=== PATIENT | male | born 1965 | race Caucasian/White ===

== ENCOUNTER → 2021-01-11 17:07 | Outpatient (CLI) | payer OTHER, SELFPAY ==
[2021-01-11 17:47] LABS: Bacteria 0 SEEN /hpf (None Seen); Mucous, Urine 0 SEEN /hpf (<or=2+); Red Blood Cells-Urine 0 SEEN /hpf (0-5); White Blood Cells 0 SEEN /hpf (0-5)
[2021-01-11 18:39] LABS: Color, Urine Yellow (Yellow); Glucose, Dipstick Normal (Normal); Ketone-Dipstick Negative (Negative); Leukocyte Esterase-Dipstick Negative /ul (Negative); Nitrite-Dipstick Negative (Negative); Occult Blood-Urine 25 /ul (Negative); Protein-Dipstick Negative (Negative); Specific Gravity, Urine 1.015 (1.002-1.030); Urine Bilirubin Dipstick Negative (Negative); Urine Clarity Clear (Clear); Urine Urobilinogen Normal (Normal)
[2021-01-11 19:16] LABS: Squamous Epithelial Cells - UA 0-5 SEEN /hpf (0-5)
== END ==
PROVIDERS: PCP Family Medicine; Referring Provider Nurse Practitioner Adult Health; Visit Provider Nurse Practitioner Adult Health
DX: R31.29 Other microscopic hematuria (principal)
CPT/HCPCS: 81001

== ENCOUNTER 2024-09-30 16:01 | Inpatient (IN) | payer OTHER, SELFPAY ==
[2024-09-30] VITALS (24 sets, daily range): BP systolic 122–178; BP diastolic 71–154; PULSE 70–182; RESP 12–23; TEMP 36.6–36.7; O2SAT 91–96; BMI 35.6; BMI 38.7
--- NOTE | 2024-09-30 16:10 | EKG12_ITS ---
Test Reason : Blood Pressure : */* mmHG Vent. Rate : 174 BPM Atrial Rate : * BPM P-R Int : * ms QRS Dur : 90 ms QT Int : 278 ms P-R-T Axes : * 36 -75 degrees QTcB Int : 473 ms Critical Test Result: High HR Atrial fibrillation with rapid ventricular response Marked ST abnormality, possible lateral subendocardial injury Abnormal ECG Confirmed by ARCHIE MARR, MATTHIAS ([id number]), map editor KAREEM MATHUR ([id number]) on 10/01/2024 8:08:47 AM Referred By: Confirmed By: MATTHIAS ALMANZA MD
[2024-09-30] MEDS: dilTIAZem 25 MG/5 ML Vial 20 MG IV BOLUS (16:11)
--- NOTE | 2024-09-30 16:11 | EX.ED.DYSGE1 ---
HPI <RUSS Lopez Last Filed: 09/30/24 17:53> History of Present Illness Chief Complaint: Palpitations Narrative Narrative: 59-year-old male with PMH of HTN, DVT/PE on Coumadin presents with palpitations that started at 9 AM had have occurred all day long. It started when he was walking uphill. He states he has had intermittent palpitations for the last 10 years but it normally only last a few minutes and goes away so he was never been evaluated. He states he is had an EKG at his primary care and cardiology office but at that time did not have symptoms and it looked fine. Here his heart rates in the 180s. He denies history of A-fib or known arrhythmia. 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 He is compliant and his INR was 3.0 last week. He denies chest pain or shortness of breath. He states he has mild ankle swelling in the mornings which goes down and has had no increased edema. PFSH <RUSS Lopez Last Filed: 09/30/24 17:53> [facility] Home Medications ?Medication ?Instructions ?Recorded ?Last Taken ?Type amlodipine 5 mg tablet 5 mg PO DAILY 09/30/24 09/30/24 History metoprolol tartrate 25 mg tablet 25 mg PO BID 09/30/24 Unknown History tamsulosin 0.4 mg capsule 0.8 mg PO QHS 09/30/24 09/29/24 History warfarin 1 mg tablet 1 mg PO DAILY 09/30/24 09/30/24 History warfarin 2 mg tablet 2 mg PO SUTUWETHSA 09/30/24 09/30/24 History warfarin 2.5 mg tablet 2.5 mg PO MOFR 09/30/24 09/30/24 History Allergy/AdvReac Type Severity Reaction Status Date / Time No Known Allergies Allergy Verified 09/30/24 16:04 Social History Smoking Status: Never smoker ROS <RUSS Lopez Last Filed: 09/30/24 17:53> ROS ED ROS Narrative Constitutional: Negative for fever, chills, malaise. CVS: Positive for palpitations. Negative for chest pain, syncope. Respiratory: Negative for shortness of breath, cough, orthopnea. GI: Negative for abdominal pain, nausea, vomiting. EXAM <RUSS Lopez Filed: 09/30/24 17:53> Physical Exam Narrative Exam Narrative: CONST: Patient sitting in no acute distress. EYES: Normal inspection. NECK: Normal inspection. RESP: No respiratory distress, CTAB. CVS: Tachycardic irregularly irregular rhythm, no murmur, no gallop. ABD: Soft and nontender, no guarding or rebound, nondistended. SKIN: Color normal, no rash, warm, dry, intact. EXTREMITIES: Normal appearance, trace bilateral ankle edema. NEURO: Alert and answering questions appropriately. PSYCH: Normal affect. Const Vital Signs: 09/30/24 16:01 09/30/24 16:02 09/30/24 16:10 Temperature 98 F Temperature Source Oral Pulse Rate 179 H 182 H Respiratory Rate 21 H 12 Respiratory Effort Normal Non-Labored Respiratory Pattern Blood Pressure 169/126 H 169/126 H Blood Pressure Mean 140 140 Blood Pressure Source Blood Pressure Position Blood Pressure Location Pulse Ox 95 93 Oxygen Delivery Method Room Air Room Air 09/30/24 16:13 09/30/24 16:17 09/30/24 16:18 Temperature Temperature Source Pulse Rate 129 H 118 H Respiratory Rate 21 H 12 Respiratory Effort Normal Non-Labored Respiratory Pattern Tachypnea Blood Pressure 138/104 H Blood Pressure Mean 115 Blood Pressure Source Blood Pressure Position Blood Pressure Location Pulse Ox 93 95 Oxygen Delivery Method Room Air Room Air 09/30/24 16:21 09/30/24 16:30 09/30/24 16:45 Temperature Temperature Source Pulse Rate 116 H 109 H 113 H Respiratory Rate 17 14 16 Respiratory Effort Respiratory Pattern Blood Pressure 156/101 H 152/71 H Blood Pressure Mean 116 90 Blood Pressure Source Blood Pressure Position Blood Pressure Location Pulse Ox 95 95 91 Oxygen Delivery Method Room Air Room Air 09/30/24 17:00 09/30/24 17:15 09/30/24 17:22 Temperature Temperature Source Pulse Rate 114 H 114 H Respiratory Rate 14 14 Respiratory Effort Respiratory Pattern Blood Pressure 156/96 H 159/104 H 159/104 H Blood Pressure Mean 112 116 122 Blood Pressure Source Monitor Blood Pressure Position Semi-Fowlers Blood Pressure Location Right Arm Pulse Ox 94 93 Oxygen Delivery Method Room Air Room Air 09/30/24 17:30 Temperature Temperature Source Pulse Rate 104 H Respiratory Rate 17 Respiratory Effort Respiratory Pattern Blood Pressure 170/101 H Blood Pressure Mean 120 Blood Pressure Source Blood Pressure Position Blood Pressure Location Pulse Ox 96 Oxygen Delivery Method <Dr. Rome Howe DO - Last Filed: 09/30/24 17:59> Physical Exam Const Vital Signs: 09/30/24 16:01 09/30/24 16:02 09/30/24 16:10 Temperature 98 F Temperature Source Oral Pulse Rate 179 H 182 H Respiratory Rate 21 H 12 Respiratory Effort Normal Non-Labored Respiratory Pattern Blood Pressure 169/126 H 169/126 H Blood Pressure Mean 140 140 Blood Pressure Source Blood Pressure Position Blood Pressure Location Pulse Ox 95 93 Oxygen Delivery Method Room Air Room Air 09/30/24 16:13 09/30/24 16:17 09/30/24 16:18 Temperature Temperature Source Pulse Rate 129 H 118 H Respiratory Rate 21 H 12 Respiratory Effort Normal Non-Labored Respiratory Pattern Tachypnea Blood Pressure 138/104 H Blood Pressure Mean 115 Blood Pressure Source Blood Pressure Position Blood Pressure Location Pulse Ox 93 95 Oxygen Delivery Method Room Air Room Air 09/30/24 16:21 09/30/24 16:30 09/30/24 16:45 Temperature Temperature Source Pulse Rate 116 H 109 H 113 H Respiratory Rate 17 14 16 Respiratory Effort Respiratory Pattern Blood Pressure 156/101 H 152/71 H Blood Pressure Mean 116 90 Blood Pressure Source Blood Pressure Position Blood Pressure Location Pulse Ox 95 95 91 Oxygen Delivery Method Room Air Room Air 09/30/24 17:00 09/30/24 17:15 09/30/24 17:22 Temperature Temperature Source Pulse Rate 114 H 114 H Respiratory Rate 14 14 Respiratory Effort Respiratory Pattern Blood Pressure 156/96 H 159/104 H 159/104 H Blood Pressure Mean 112 116 122 Blood Pressure Source Monitor Blood Pressure Position Semi-Fowlers Blood Pressure Location Right Arm Pulse Ox 94 93 Oxygen Delivery Method Room Air Room Air 09/30/24 17:30 Temperature Temperature Source Pulse Rate 104 H Respiratory Rate 17 Respiratory Effort Respiratory Pattern Blood Pressure 170/101 H Blood Pressure Mean 120 Blood Pressure Source Blood Pressure Position Blood Pressure Location Pulse Ox 96 Oxygen Delivery Method MDM <RUSS Lopez - Last Filed: 09/30/24 17:53> MDM MDM Narrative Medical decision making narrative: History gathered from: Patient and spouse Differential includes A-fib, ACS 59-year-old male has had palpitations since 9 AM and presents in A-fib RVR in the 170s. BP is 169/126, 95% on room air. He is in no distress and has no chest pain or shortness of breath. EKG shows A-fib RVR and ST depressions in the lateral chest leads with no prior for comparison. Labs show WBC of 8.2, hemoglobin 18.5. Chemistry is unremarkable. After IV Cardizem bolus of 20 mg he is in A-fib RVR around 115 bpm. He was ordered a second bolus of Cardizem 10 mg and a drip. CBC shows hemoglobin of 18.5, otherwise unremarkable. BMP negative. TSH within normal limits at 1.64. Troponin is 14 with delta pending. INR is therapeutic at 2.5. CXR shows cardiomegaly without other acute findings. It notes a tortuous aorta but patient has no chest pain and I am not concerned for an acute dissection and think this could be followed up outpatient. I discussed the case with the hospitalist for admission for A-fib RVR. Lab Data Attestation: I reviewed the patient's lab results. Labs: Laboratory Results - last 24 hr 09/30/24 16:09 WBC 8.2 RBC 5.89 Hgb 18.5 H* Hct 52.0 MCV 88.3 MCH 31.4 MCHC 35.6 RDW Std Deviation 43.4 RDW Coeff of Cait 13.4 Plt Count 228 MPV 8.2 Immature Gran % (Auto) 0.500 Neut % (Auto) 58.9 Lymph % (Auto) 28.3 [place] % (Auto) 10.2 H Eos % (Auto) 1.6 Baso % (Auto) 0.5 Absolute Neuts (auto) 4.9 Absolute Lymphs (auto) 2.33 Nucleated RBC % 0 PT 27.8 H INR 2.5 Sodium 139 Potassium 3.3 Chloride 101 Carbon Dioxide 23.1 Anion Gap 15 BUN 16 Creatinine 1.02 Estim Creat Clear Calc 103.37 Est GFR (MDRD) Non-Af 86 BUN/Creatinine Ratio 15.8 Glucose 138 H Calcium 9.2 Magnesium 1.9 Troponin T High Sens 14 NT pro BNP II 104 TSH 1.640 Radiography Diagnostic Testing: Clinical Impression(s) from Imaging Studies Chest X-Ray 09/30/24 16:22 IMPRESSION: 1. Borderline cardiomegaly without visible acute cardiopulmonary findings 2. Recommend outpatient CT chest, ideally with IV contrast, for further evaluation of questionable above mediastinal findings. Comparison with any available outside imaging may also be helpful. 3. Additional description as above. Reading Location: [facility] ED attending interpretation 1 view chest x-ray shows cardiomegaly, no acute infiltrate, edema, or effusion. EKG Initial EKG: Attestation: I personally reviewed and interpreted this EKG as follows: Interpretation: Atrial Fibrillation Comments: A-fib RVR at [address] depressions in the V3 through V6 No prior for comparison <Dr. Rome Howe, - Last Filed: 09/30/24 17:59> MDM History & Record Review Discussion w/independent historian: Patient and Family Lab Data Labs: Laboratory Results - last 24 hr 09/30/24 16:09 WBC 8.2 RBC 5.89 Hgb 18.5 H* Hct 52.0 MCV 88.3 MCH 31.4 MCHC 35.6 RDW Std Deviation 43.4 RDW Coeff of Cait 13.4 Plt Count 228 MPV 8.2 Immature Gran % (Auto) 0.500 Neut % (Auto) 58.9 Lymph % (Auto) 28.3 [place] % (Auto) 10.2 H Eos % (Auto) 1.6 Baso % (Auto) 0.5 Absolute Neuts (auto) 4.9 Absolute Lymphs (auto) 2.33 Nucleated RBC % 0 PT 27.8 H INR 2.5 Sodium 139 Potassium 3.3 Chloride 101 Carbon Dioxide 23.1 Anion Gap 15 BUN 16 Creatinine 1.02 Estim Creat Clear Calc 103.37 Est GFR (MDRD) Non-Af 86 BUN/Creatinine Ratio 15.8 Glucose 138 H Calcium 9.2 Magnesium 1.9 Troponin T High Sens 14 NT pro BNP II 104 TSH 1.640 Radiography Diagnostic Testing: Clinical Impression(s) from Imaging Studies Chest X-Ray 09/30/24 16:22 IMPRESSION: 1. Borderline cardiomegaly without visible acute cardiopulmonary findings 2. Recommend outpatient CT chest, ideally with IV contrast, for further evaluation of questionable above mediastinal findings. Comparison with any available outside imaging may also be helpful. 3. Additional description as above. Reading Location: [facility] Management Discussion w/another healthcare provider: Hospitalist Treatment and Re-Evaluation :: I have personally performed a face to face assessment of the patient and have reviewed the SETH Note. I performed a substantive portion of the visit including all aspects of the following. My jeffrey findings include: History is 59-year-old [employer] male presenting to the emergency room with heart palpitations and fatigue. Patient states that for the years he has had intermittent episodes of heart palpitations which would resolve on its own in a couple hours or less. However today he was walking home and spent the last couple 100 yards going up the hill and he felt his heart racing. He states his brain feels foggy and generally rundown. He states that sensation has not resolved. He is chronically on warfarin due to 2 prior pulmonary embolisms with a strong family history. He has never been diagnosed with a cardiac dysrhythmia. He denies chest pain. Exam is heart is irregularly irregular and tachycardic. Lung sounds are clear and equal. Mild edema of the lower extremities but the patient states his legs are not any different than normal. ANO x 3 Medical Decison Making EKG confirms atrial fibrillation with RVR. My independent interpretation of the chest x-ray is no acute process. INR is therapeutic at 2.5. Plan is admission to the hospital. He is received Cardizem and was placed on a drip. Discharge Plan Triage Chief Complaint: Palpitations ED Midlevel Provider: Rakel Reese ED Provider: Rome Howe Dx/Rx/DC Orders Clinical Impression: Atrial fibrillation with RVR, Anticoagulant long-term use Primary Care Provider: Brennon Sifuentes
[2024-09-30 16:16] LABS: Absolute Lymphocyte Count 2.33 X10^3/uL (0.83-4.51); Absolute Neutrophil Count 4.9 X10^3/uL (2.0-7.7); Basophil# 0.04 X10^3/uL; Basophil% 0.5 % (0-1); Eosinophil# 0.13 X10^3/uL; Eosinophils% 1.6 % (0-5); Lymphocyte # 2.33 X10^3/ul (0.83-4.51); Lymphocyte % 28.3 % (19-41); Mean Corp Hgb Conc 35.6 g/dL (32-36); Mean Corpuscular Hgb 31.4 pg (27.0-32.0); Mean Corpuscular Volume 88.3 fL (80-94); Mean Platelet Vol. 8.2 fl (6.2-12.0); Monocyte# 0.84 X10^3/uL; Monocyte% 10.2 % (0-10); NRBC Flagged by Analyzer 0 % (0-5); Neutrophil # 4.86 X10^3/uL (2.7-7.7); Neutrophil % 58.9 % (47-70); Platelet Count 228 K/mm3 (150-450); RBC Distribution Width CV 13.4 % (11.6-14.6); RBC Distribution Width SD 43.4 fl (35.1-43.9); Red Blood Count 5.89 M/mm3 (4.6-6.2); White Blood Count 8.2 K/mm3 (4.4-11.0)
[2024-09-30 16:20] LABS: Hemoglobin 18.5 g/dL (13.0-16.5)
--- NOTE | 2024-09-30 16:22 | RAD_ITS ---
PROCEDURE: CHEST 1 VIEW (RADCXPA), 09/30/2024 REASON FOR EXAM: DYSPNEA TECHNIQUE: A single portable AP view of the chest was obtained. COMPARISON: None FINDINGS: Heart: Borderline cardiomegaly for technique. Mediastinum: Tortuous aorta, unable to exclude ectasia/aneurysm. Widening of the RIGHT paratracheal stripe which could be projectional, related to mediastinal lipomatosis, prominent vasculature, mediastinal lymphadenopathy, or other mediastinal process. Lungs/pleura: No focal consolidation. No sizeable pleural effusion or visible pneumothorax. Bones: Likely demineralization. Degenerative changes of the RIGHT shoulder including evidence of rotator cuff pathology. Lines and support devices: None. RAD/Chest 1 View IMPRESSION: 1. Borderline cardiomegaly without visible acute cardiopulmonary findings 2. Recommend outpatient CT chest, ideally with IV contrast, for further evaluat ion of questionable above mediastinal findings. Comparison with any available outside imaging may also be helpful. 3. Additional description as above. Reading Location: [id number]
[2024-09-30] MEDS: dilTIAZem 25 MG/5 ML Vial 10 MG IV BOLUS (16:37)
[2024-09-30 16:42] LABS: Anion Gap 15 (5-15); BUN 16 mg/dL (4-19); BUN/Creat Ratio 15.8 RATIO (10-20); Calcium,Total 9.2 mg/dL (7.6-11.0); Carbon Dioxide 23.1 mmol/L (21.0-32.0); Chloride 101 mmol/L (98-108); Creatinine, Serum 1.02 mg/dL (0.70-1.20); EST Glomerular Filtration Rate 86 (>60); Estimated Creatinine Clearance 103.37 ml/min (50-250); Glucose 138 mg/dL (70-99); Potassium 3.3 mmol/L (3.3-5.1); Sodium Level 139 mmol/L (133-145); Troponin T High Sensitivity 14 ng/L (<=22)
[2024-09-30] MEDS: Diltiazem 125 MG in Dextrose 5%-Water (100mL Bag) 100 ML IV (16:43)
[2024-09-30 17:08] LABS: Magnesium 1.9 mg/dL (1.5-2.2)
[2024-09-30 17:31] LABS: Pro- Brain NATRIURETIC PEPTIDE 104 pg/mL (<=900)
[2024-09-30 17:47] LABS: International Normalized Ratio 2.5; Prothrombin Time (Protime)PT. 27.8 SECONDS (11.7-14.9)
[2024-09-30] MEDS: 0.9% Normal Saline (1000mL) 1,000 ML 999 ML IV (17:54)
--- NOTE | 2024-09-30 18:00 | HP.PCM.HOS_ITS ---
[facility] - General General Date of Admission: 09/30/24 HPI Narrative LÁZARO MONTENEGRO, is a 59 M who presents to the hospital with palpitations. Initially his heart rate peaked at 182 and at that time he felt a little bit tired and fatigued. He has had intermittent episodes of palpitations that always resolved on his own and does not carry a diagnosis of A-fib prior to today. He denies ever having had an echo in the past, he is currently on Coumadin for history of DVTs and PEs, there is a family history of blood clots as well. In the ER he was found to be in A-fib, initial troponin was normal at 14 with a proBNP of 104 and a TSH of 1.64. He is on metoprolol 25 mg p.o. twice daily and was started on a Cardizem drip his heart rate did come down to 110 during my evaluation but he remains in A-fib. [facility] Home Medications ?Medication ?Instructions ?Recorded ?Last Taken ?Type amlodipine 5 mg tablet 5 mg PO BID blood pressure 0 09/30/24 09/30/24 History metoprolol tartrate 25 mg tablet 25 mg PO BID 09/30/24 Unknown History tamsulosin 0.4 mg capsule 0.8 mg PO QHS 09/30/2409/29 History warfarin 1 mg tablet 1 mg PO DAILY 09/30/2409/30 History warfarin 2 mg tablet 2 mg PO SUTUWETHSA 09/30/24 09/30/24 History warfarin 2.5 mg tablet 2.5 mg PO MOFR 09/30/2401/17 History Allergy/AdvReac Type Severity Reaction Status Date / Time No Known Allergies Allergy Verified 09/30/24 16:04 Family History (Updated 09/30/24 @ 18:[address] Geovanny Martinez MD) Other Diabetes Heart disease Surgical History (Updated 09/30/24 @ 18:[address] Geovanny Martinez MD) History of surgery on left wrist History of elbow surgery Social History Smoking Status: Never smoker ROS Constitutional Constitutional: Reports fatigue; Denies chills, fever(s) or malaise Eyes Eyes: Denies blurry vision ENT HEENT: Denies headache(s) or nasal discharge Cardiovascular Cardiovascular: Reports palpitations; Denies chest pain, dyspnea on exertion or syncope Respiratory/Chest Respiratory/Chest: Denies cough, shortness of breath at rest or shortness of breath with exertion Gastrointestinal Gastrointestinal: Denies constipation, diarrhea, nausea or vomiting Genitourinary Genitourinary: Denies dysuria Neurologic Neurologic: Denies focal weakness, numbness or tremor(s) Psychiatric Psychiatric: Denies anxiety or depression Vital Signs Vital Signs Vital Signs: 09/30/24 16:01 09/30/24 16:02 09/30/24 16:10 Temperature 98 F Temperature Source Oral Pulse Rate 179 H 182 H Respiratory Rate 21 H 12 Respiratory Effort Normal Non-Labored Respiratory Pattern Blood Pressure 169/126 H 169/126 H Blood Pressure Mean 140 140 Blood Pressure Source Blood Pressure Position Blood Pressure Location Pulse Ox 95 93 Oxygen Delivery Method Room Air Room Air 09/30/24 16:13 09/30/24 16:17 09/30/24 16:18 Temperature Temperature Source Pulse Rate 129 H 118 H Respiratory Rate 21 H 12 Respiratory Effort Normal Non-Labored Respiratory Pattern Tachypnea Blood Pressure 138/104 H Blood Pressure Mean 115 Blood Pressure Source Blood Pressure Position Blood Pressure Location Pulse Ox 93 95 Oxygen Delivery Method Room Air Room Air 09/30/24 16:21 09/30/24 16:30 09/30/24 16:45 Temperature Temperature Source Pulse Rate 116 H 109 H 113 H Respiratory Rate 17 14 16 Respiratory Effort Respiratory Pattern Blood Pressure 156/101 H 152/71 H Blood Pressure Mean 116 90 Blood Pressure Source Blood Pressure Position Blood Pressure Location Pulse Ox 95 95 91 Oxygen Delivery Method Room Air Room Air 09/30/24 17:00 09/30/24 17:15 09/30/24 17:22 Temperature Temperature Source Pulse Rate 114 H 114 H Respiratory Rate 14 14 Respiratory Effort Respiratory Pattern Blood Pressure 156/96 H 159/104 H 159/104 H Blood Pressure Mean 112 116 122 Blood Pressure Source Monitor Blood Pressure Position Semi-Fowlers Blood Pressure Location Right Arm Pulse Ox 94 93 Oxygen Delivery Method Room Air Room Air 09/30/24 17:30 09/30/24 17:45 09/30/24 17:54 Temperature Temperature Source Pulse Rate 104 H 108 H 109 H Respiratory Rate 17 15 23 H Respiratory Effort Respiratory Pattern Blood Pressure 170/101 H 175/154 H 170/101 H Blood Pressure Mean 120 161 124 Blood Pressure Source Blood Pressure Position Blood Pressure Location Pulse Ox 96 94 95 Oxygen Delivery Method Room Air 09/30/24 17:55 Temperature 98 F Temperature Source Pulse Rate 107 H Respiratory Rate 19 H Respiratory Effort Respiratory Pattern Blood Pressure 162/119 H Blood Pressure Mean 133 Blood Pressure Source Blood Pressure Position Blood Pressure Location Pulse Ox 95 Oxygen Delivery Method Weight Weight: 255 lb 1.197 oz Body Mass Index (BMI) 35.6 Physical Exam Narrative General: Alert, Oriented x3, Cooperative, No apparent distress HEENT: Atraumatic, PERRLA, EOMI, Normocephalic Oral: Moist Mucosa Neck: Supple, No JVD Lungs: Diminished, Normal air movement, No rhonchi, No wheeze, No rales Cardiovascular: Irregular rate and rhythm, Normal S1, Normal S2, No murmurs Abdomen: Soft, Non Tender, Non-Distended, No Hepato-splenomegaly Extremities: No edema, Capillary Refill Less than 3 Seconds Skin: No rashes, No breakdown Musculoskeletal: No Tenderness to Palpation of Joints or Extremities Neurological: No focal neurological deficits, Motor Exam 5/5 strength throughout, Sensory exam intact to light touch and pain Psych/Mental Status: Normal Affect, Appropriate Results Lab / Micro Data 09/30/24 16:09 09/30/24 16:09 Labs: Laboratory Results - last 24 hr 09/30/24 16:09: WBC 8.2, RBC 5.89, Hgb 18.5 H*, Hct 52.0, MCV 88.3, MCH 31.4, MCHC 35.6, RDW Std Deviation 43.4, RDW Coeff of Cait 13.4, Plt Count 228, MPV 8.2, Immature Gran % (Auto) 0.500, Neut % (Auto) 58.9, Lymph % (Auto) 28.3, [place] % (Auto) 10.2 H, Eos % (Auto) 1.6, Baso % (Auto) 0.5, Absolute Neuts (auto) 4.9, Absolute Lymphs (auto) 2.33, Nucleated RBC % 0, PT 27.8 H, INR 2.5, Sodium 139, Potassium 3.3, Chloride 101, Carbon Dioxide 23.1, Anion Gap 15, BUN 16, Creatinine 1.02, Estim Creat Clear Calc 103.37, Est GFR (MDRD) Non-Af 86, BUN/Creatinine Ratio 15.8, Glucose 138 H, Calcium 9.2, Magnesium 1.9, Troponin T High Sens 14, NT pro BNP II 104, TSH 1.640 Imaging Radiology Impression Chest X-Ray 09/30/24 16:22 IMPRESSION: 1. Borderline cardiomegaly without visible acute cardiopulmonary findings 2. Recommend outpatient CT chest, ideally with IV contrast, for further evaluation of questionable above mediastinal findings. Comparison with any available outside imaging may also be helpful. 3. Additional description as above. Reading Location: [id number] Assessment & Plan Assessment/Plan (1) Atrial fibrillation with RVR: PLAN: Plan 1. New onset A-fib with RVR/essential HTN ? Continue with an echo ? Will increase metoprolol to 50 mg p.o. twice daily ? Continue with Cardizem drip, can titrate off after his metoprolol is given tonight or when he goes into normal sinus rhythm ? Continue with his home Coumadin for his hypercoagulable state ? Will monitor his blood pressure and make adjustments as necessary, his Norvasc is at 5 mg daily ? INR today is 2.5 2. BPH ? Stable ? Continue with Flomax DVT: Coumadin Charges/Coding Visit Charges Inpatient E&M: 44950 Init Hosp L2
[2024-09-30 18:39] LABS: Troponin T High Sens 2 HR 16 ng/L (<=22)
--- NOTE | 2024-09-30 18:41 | ECHOD_ITS ---
Reason For Study Reason For Study: ATRIAL FIB/FLUTTER Procedure This was a 2D Doppler, Color Flow transthoracic echocardiogram. Exam performed portable in patient room. Left Ventricle Normal LV size. Left ventricular systolic function is normal. The left ventricular ejection fraction is 60 %. No regional wall motion abnormalities noted. Right Ventricle Normal RV size. Normal systolic function. Atria Normal left atrium. Normal right atrium. Mitral Valve Normal mitral valve. Tricuspid Valve Normal tricuspid valve. Aortic Valve Trisinus/trileaflet aortic valve. Pulmonic Valve Normal pulmonic valve. Great Vessels Normal aortic root. The pulmonary artery is normal size. Inferior vena cava collapse with respiration. Pericardium/Pleural No pericardial effusion. MMode/2D Measurements & Calculations LVIDd: 5.6 cm IVSd: 1.1 cm Ao root diam: 4.0 cm LVIDs: 3.3 cm LVPWd: 1.1 cm RVDd: 3.8 cm FS: 41.0 % LAV(MOD-bp): 83.8 ml LVAd ap4: 35.3 cm2 SV(MOD-sp4): 65.3 ml LAV(MOD-bp) Indexed: 35.8 ml/m2 LVLd ap4: 8.9 cm SI(MOD-sp4): 27.9 ml/m2 LAV(MOD-sp2): 87.9 ml EDV(MOD-sp4): 115.4 ml LAV(MOD-sp4): 78.9 ml EDV(sp4-el): 119.3 ml LVAs ap4: 20.6 cm2 LVLs ap4: 7.4 cm ESV(MOD-sp4): 50.1 ml ESV(sp4-el): 48.7 ml EF(MOD-sp4): 56.6 % EF(sp4-el): 59.2 % SV(sp4-el): 70.6 ml LA A4 area: 23.2 cm2 LA dimension(2D): 4.3 cm RA A4 area: 15.3 cm2 TAPSE: 2.8 cm Time Measurements MV dec time: 0.17 sec Doppler Measurements & Calculations MV E max silas: 77.8 cm/sec Lat Peak E' Silas: 7.9 cm/sec Med Peak E' Silas: 6.2 cm/sec MV A max silas: 90.6 cm/sec E/E' lat: 9.9 E/E' med: 12.5 MV E/A: 0.86 MV V2 max: 93.2 cm/sec MV P1/2t max silas: 91.2 cm/sec Ao V2 max: 131.0 cm/sec MV max P.5 mmHg MV P1/2t: 50.0 msec Ao max P.9 mmHg MV V2 mean: 47.5 cm/sec Ao V2 mean: 94.9 cm/sec MV mean P.2 mmHg MV dec slope: 535.0 cm/sec2 Ao mean P.9 mmHg MV V2 VTI: 26.7 cm MVA(P1/2t): 4.4 cm2 Ao V2 VTI: 27.9 cm AV (velocity ratio): 0.58 LV V1 max: 74.4 cm/sec PA V2 max: 113.6 cm/sec TR max silas: 240.7 cm/sec LV V1 max P.2 mmHg PA V2 mean: 75.9 cm/sec TR max P.2 mmHg LV V1 mean P.2 mmHg LV V1 mean: 51.1 cm/sec LV V1 VTI: 16.2 cm ECHO/Echo Complete Interpretation Summary Normal LV size. Left ventricular systolic function is normal. The left ventricular ejection fraction is 60 %. Structurally normal valves. Ordering Physician: Geovanny Martinez Referring Physician: Brennon Sifuentes Performed By: Jina Bonilla, RONITCS, RVT
[2024-09-30 20:19] LABS: Troponin T High Sens 4 HR 17 ng/L (<=22)
[2024-09-30] MEDS: Metoprolol Tartrate 50 MG Tablet PO (21:08)
[2024-09-30] MEDS: Tamsulosin HCl 0.4 MG Capsule 0.8 MG PO (21:09)
--- NOTE | 2024-09-30 21:30 | EKG12_ITS ---
Test Reason : NSR CONVERSION Blood Pressure : */* mmHG Vent. Rate : 71 BPM Atrial Rate : 71 BPM P-R Int : 212 ms QRS Dur : 100 ms QT Int : 388 ms P-R-T Axes : 28 21 14 degrees QTcB Int : 421 ms Sinus rhythm with 1st degree A-V block Otherwise normal ECG When compared with ECG of 30-Sep-2024 16:03, MANUAL COMPARISON REQUIRED DATA IS UNCONFIRMED Confirmed by ARCHIE MARR, MATTHIAS ([id number]), editorial manager KAREEM MATHUR ([id number]) on 10/01/2024 8:11:35 AM Referred By: Confirmed By: MATTHIAS ALMANZA MD
[2024-09-30] MEDS: dilTIAZem CD 240 MG Capsule PO (22:39)
[2024-10-01 03:00] VITALS: BP 143/94; PULSE 67; RESP 12; TEMP 36.6; O2SAT 93
[2024-10-01 06:42] LABS: Absolute Lymphocyte Count 1.52 X10^3/uL (0.83-4.51); Absolute Neutrophil Count 3.4 X10^3/uL (2.0-7.7); Basophil# 0.02 X10^3/uL; Basophil% 0.4 % (0-1); Eosinophil# 0.12 X10^3/uL; Eosinophils% 2.1 % (0-5); Hemoglobin 15.7 g/dL (13.0-16.5); Lymphocyte # 1.52 X10^3/ul (0.83-4.51); Lymphocyte % 26.8 % (19-41); Mean Corp Hgb Conc 34.9 g/dL (32-36); Mean Corpuscular Volume 88.8 fL (80-94); Mean Platelet Vol. 8.3 fl (6.2-12.0); Monocyte# 0.64 X10^3/uL; Monocyte% 11.3 % (0-10); NRBC Flagged by Analyzer 0 % (0-5); Neutrophil # 3.36 X10^3/uL (2.7-7.7); Platelet Count 218 K/mm3 (150-450); RBC Distribution Width CV 13.7 % (11.6-14.6); RBC Distribution Width SD 44.1 fl (35.1-43.9); Red Blood Count 5.07 M/mm3 (4.6-6.2); White Blood Count 5.7 K/mm3 (4.4-11.0)
[2024-10-01 06:57] LABS: International Normalized Ratio 2.6; Prothrombin Time (Protime)PT. 28.5 SECONDS (11.7-14.9)
[2024-10-01 07:04] LABS: Anion Gap 12 (5-15); BUN 13 mg/dL (4-19); BUN/Creat Ratio 12.7 RATIO (10-20); Calcium,Total 8.4 mg/dL (7.6-11.0); Carbon Dioxide 24.8 mmol/L (21.0-32.0); Chloride 103 mmol/L (98-108); Creatinine, Serum 0.99 mg/dL (0.70-1.20); EST Glomerular Filtration Rate 89 (>60); Estimated Creatinine Clearance 101.66 ml/min (50-250); Glucose 121 mg/dL (70-99); Potassium 3.4 mmol/L (3.3-5.1); Sodium Level 140 mmol/L (133-145)
[2024-10-01 09:00] VITALS: BP 152/99; PULSE 69; RESP 18; TEMP 36.6; O2SAT 97
[2024-10-01 09:15] VITALS: BP 152/99; PULSE 69
[2024-10-01] MEDS: amLODIPine 5 MG Tablet PO (09:15)
[2024-10-01] MEDS: Metoprolol Tartrate 50 MG Tablet PO (09:15)
--- NOTE | 2024-10-01 09:24 | PCM.DC.SUM ---
Providers Date of Admission: 09/30/24 Date of Discharge: 10/01/24 Primary Care Physician: Dr. Brennon Sifuentes DO Reason For Visit: AFIB WITH RVR Diagnosis Discharge Diagnosis (1) Atrial fibrillation with RVR: Status: Acute Code(s): I48.91 - Unspecified atrial fibrillation Medications at Discharge Home Medications amlodipine 5 mg tablet 5 mg PO BID blood pressure 09/30/24 tamsulosin 0.4 mg capsule 0.8 mg PO QHS 09/30/24 warfarin 1 mg tablet 1 mg PO DAILY 09/30/24 warfarin 2 mg tablet 2 mg PO SUTUWETHSA 09/30/24 warfarin 2.5 mg tablet 2.5 mg PO MOFR 09/30/24 metoprolol tartrate 100 mg tablet 100 mg PO BID #60 tabs 10/01/24 Hospital Course Operations None Procedures 2-D Echocardiogram and EKG Summary of Care Provided Minutes Spent on Discharge: 38 Hospital Course: Mr. Eaton is a 59-year-old Catholic male who presented to the emergency department [facility] on 09/30/2024 with chief complaint of palpitations. Patient took his heart rate at home when he was feeling poorly and noted a heart rate of 182 and felt tired and fatigued. He denies any chest pain or significant shortness of breath. He has had intermittent palpitations but does not have a history of atrial fibrillation. He does have a known history of hypertension and at baseline is on 25 mg of metoprolol twice a day and amlodipine 5 mg p.o. twice daily. Vital signs on presentation showed a temperature of 98, heart rate 179, respiratory rate 21, blood pressure 169/126 and pulse ox was 95% on room air. His CBC was unremarkable other than having a hemoglobin 18.5. Baseline is unclear. INR was therapeutic at 2.5. Chemistry panel was unremarkable other than a glucose of 138. Troponin was negative x 3. BNP was unremarkable. Chest x-ray showed borderline cardiomegaly without visible acute cardiopulmonary findings and there was questionable widening of the right paratracheal stripe for which outpatient CT was recommended. EKG showed A-fib with RVR. Given the fact he was already on metoprolol 25 mg p.o. twice daily was started on a Cardizem drip and his heart rate did improve to the 110's while in the emergency department. He did remain in atrial fibrillation. 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 His metoprolol was initially increased to 50 mg p.o. twice daily and I did subsequently increase to 200 mg p.o. twice daily Cardizem drip was stopped late in the evening after discharge as he reverted into normal sinus rhythm. He remained in normal sinus rhythm throughout the rest of his hospital stay. Echocardiogram was performed and demonstrated an EF of 60% with normal valves. His INR was therapeutic throughout his hospitalization and we have continued his home Coumadin at the same dosage and recommended outpatient follow-up as previously recommended. Prescription for his increased metoprolol dose was sent to his local pharmacy. He did have plenty of blood pressure to tolerate the increase in beta-martha dose so we did leave him on his amlodipine. I do question whether or not he has a component of sleep apnea. His thyroid was normal. I highly recommend him obtaining an polysomnography as an outpatient. Patient was scheduled for follow-up with cardiology to be seen in the next 2 weeks and we recommended that he follow-up with his primary care physician within the next week. The patient was able to be discharged home with new prescriptions as noted above in stable condition on 10/01/2024. I did review atrial fibrillation with him and complication of stroke without anticoagulation. We discussed rate and rhythm control. I do think with his increased dose of beta-martha he should have less rate problems even if he does revert into atrial fibrillation his rate should be controlled to 110 or less. Discharge diagnoses: New onset A-fib with RVR Erythrocytosis Suspected [place] Essential hypertension Hyperglycemia Abnormal chest x-ray-->needs outpatient CT of the chest BPH with obstruction Obesity Physical Exam Const alert, oriented x3, no apparent distress, no limitations and well nourished; Negative for average body habitus or healthy appearing Constitutional Narrative: Obese, Catholic, middle-aged, white male, sitting up in bed, appears comfortable, nontoxic, at bedside General Appearance: cooperative, comfortable, well kempt and well developed Exam Limitations: no limitations Nutritional Appearance: obese HEENT normocephalic, head/scalp atraumatic, hearing grossly normal bilaterally and moist oral mucous membranes HEENT Narrative: Mallampati 3-4, dentures in place, Eyes EOMs intact bilaterally and conjunctivae normal Eyes Narrative: No scleral icterus Neck supple Neck Narrative: Trachea midline, no thyroid enlargement Resp normal respiratory effort, no retractions, no use of accessory muscles and clear to auscultation bilaterally Auscultation: Negative for rales, rhonchi or wheezes Cardio regular rate, regular rhythm, S1 normal heart sound, S2 normal heart sound, no murmurs, no rub, no gallops and no clicks GI normal to inspection, nondistended, normoactive bowel sounds, soft to palpation and non-tender GI Narrative: Large protuberant abdomen Extremity no clubbing, cyanosis or edema Extremity Narrative: 2+ pedal pulses, 2+ radial pulses Skin skin turgor normal and no jaundice Neuro oriented x3, moves all extremities and no focal motor deficits Speech: speech normal Psych affect normal Psych Narrative: Extremely pleasant, interacts appropriately, eye contact is good, patient asks good questions all Weight / BMI Weight Weight: 115.666 kg Body Mass Index (BMI) 38.7 ABG / Lab / Microbiology Data 10/01/24 05:53 10/01/24 05:53 Laboratory: Laboratory Results - last 24 hr 09/30/24 16:09: WBC 8.2, RBC 5.89, Hgb 18.5 H*, Hct 52.0, MCV 88.3, MCH 31.4, MCHC 35.6, RDW Std Deviation 43.4, RDW Coeff of Cait 13.4, Plt Count 228, MPV 8.2, Immature Gran % (Auto) 0.500, Neut % (Auto) 58.9, Lymph % (Auto) 28.3, Cascade % (Auto) 10.2 H, Eos % (Auto) 1.6, Baso % (Auto) 0.5, Absolute Neuts (auto) 4.9, Absolute Lymphs (auto) 2.33, Nucleated RBC % 0, PT 27.8 H, INR 2.5, Sodium 139, Potassium 3.3, Chloride 101, Carbon Dioxide 23.1, Anion Gap 15, BUN 16, Creatinine 1.02, Estim Creat Clear Calc 103.37, Est GFR (MDRD) Non-Af 86, BUN/Creatinine Ratio 15.8, Glucose 138 H, Calcium 9.2, Magnesium 1.9, Troponin T High Sens 14, NT pro BNP II 104, TSH 1.640 09/30/24 18:11: Troponin T Hi Sens 2 Hr 16 09/30/24 19:30: Troponin T Hi Sens 4Hr 17 10/01/24 05:53: WBC 5.7, RBC 5.07, Hgb 15.7, Hct 45.0, MCV 88.8, MCH 31.0, MCHC 34.9, RDW Std Deviation 44.1 H, RDW Coeff of Cait 13.7, Plt Count 218, MPV 8.3, Immature Gran % (Auto) 0.400, Neut % (Auto) 59.0, Lymph % (Auto) 26.8, Cascade % (Auto) 11.3 H, Eos % (Auto) 2.1, Baso % (Auto) 0.4, Absolute Neuts (auto) 3.4, Absolute Lymphs (auto) 1.52, Nucleated RBC % 0, PT 28.5 H, INR 2.6, Sodium 140, Potassium 3.4, Chloride 103, Carbon Dioxide 24.8, Anion Gap 12, BUN 13, Creatinine 0.99, Estim Creat Clear Calc 101.66, Est GFR (MDRD) Non-Af 89, BUN/Creatinine Ratio 12.7, Glucose 121 H, Calcium 8.4 Radiography Diagnostic Testing: Radiology Impression Chest X-Ray 09/30/24 16:22 IMPRESSION: 1. Borderline cardiomegaly without visible acute cardiopulmonary findings 2. Recommend outpatient CT chest, ideally with IV contrast, for further evaluation of questionable above mediastinal findings. Comparison with any available outside imaging may also be helpful. 3. Additional description as above. Reading Location: [id number] Echocardiogram 09/30/24 18:41 Interpretation Summary Normal LV size. Left ventricular systolic function is normal. The left ventricular ejection fraction is 60 %. Structurally normal valves. Ordering Physician: Geovanny Martinez Referring Physician: Brennon Sifuentes Performed By: Jina Bonilla, RDCS, RVT D/C Instructions Discharge Diet: Low fat / Low cholesterol Discharge Activity: Return to Normal Activity Return to work on: 10/02/24 DC O2, CPAP, BIPAP Needs Home O2 Discharge instructions: No Meaningful Use Info Meaningful Use Meaningful Use Diagnoses (Choose all that apply): None applicable Ischemic Stroke Statin Dosing Therapy Reference: STATIN DOSE THERAPY REFERENCE: * Patients > 75 years receive moderate or high dose statin therapy. * Patients 75 years or YOUNGER should receive HIGH intensity statin dose unless contraindicated. You will be required to document reason for non-treatment if statin daily dose does not meet guidelines. HIGH DOSE STATIN THERAPY DAILY Atorvastatin > than or = to 40 mg Rosuvastatin > than or = to 20 mg Amlodipine + Atorvastatin > than or = to 2.5/40 mg Ezetimibe + Simvastatin 10/80 mg Simvastatin 80mg Discharge Plan Admission Admit Date/Time: 09/30/24 17:57 Primary Reason for Your Visit: Palpitations Attending Provider: Sonia Rivero Primary Care Provider: Brennon Sifuentes Consulting Providers: Geovanny Martinez Discharge Orders/Prescriptions Prescriptions: New metoprolol tartrate 100 mg Tablet 100 mg PO BID Qty: 60 1RF Continued tamsulosin 0.4 mg capsule 0.8 mg PO QHS warfarin 2 mg tablet 2 mg PO SUTUWETHSA warfarin 1 mg tablet 1 mg PO DAILY Rx Instructions: WITH 2.5MG FOR TOTAL DOSE OF 3.5MG MONDAYS AND FRIDAYS AND WITH 2MG ALLL OTHER DAYS FOR TOTAL DOSE OF 3MG amlodipine 5 mg tablet 5 mg PO BID warfarin 2.5 mg tablet 2.5 mg PO MOFR Discontinued metoprolol tartrate 25 mg tablet 25 mg PO BID Referrals / Follow Up: [facility] [Provider Group] - Within 2 Weeks Brennon Sifuentes DO [Primary Care Provider] - In 1 Week Disposition Disposition (needs filled in before D/C Order can be placed): Home, Self Care Charges/Coding Visit Charges Inpatient E&M: 50795 Disch Hosp >30min
--- NOTE | 2024-10-01 11:49 | CASEMGMT ---
ELA WALSH Assessment Face to Face with patient for initial transition planning/care coordination assessment. ELA WALSH introduced self and role at [facility], pt voices understanding. Pt is A&Ox4 and is resting comfortably in bed and is calm. Pt at bedside. Care providers, pharmacy, and demographics verified. Admitting dx: AFIB with RVR LACE Strata: 1 PCP: Brennon Sifuentes Specialists: Don (Uro) Preferred [facility]acy: [facility] Insurance: Pt states that he has [employer] and denies concerns Prescription Benefit: Yes LNOK: Yanely (W) Living Arrangements: Pt lives with his and 2 adult children in a single story home with 3 steps to enter ADLs/IADLs: Ind Transportation: Hires drivers and denies concerns DME: [employer]. Denies further DME uses or needs HHC/SNF: Denies hx or needs Pt?s goal: home Plan: Home with pt family, anticipate no additional needs. Pt takes warfarin @ home already. Follow in the case that the pt gets a new blood thinning Rx. 6-click score is 24. Pt denies the need for HH or OP Tx. Pt states that he feels safe returning home with his and kids once he is medically ready and denies further questions or concerns. Report given to RESPOOLER CM. Marielle Hahn RN, CM
[2024-10-01 15:13] VITALS: BP 152/99; PULSE 69; RESP 18; TEMP 36.6; O2SAT 97
== END 2024-10-01 15:53 | disposition home or self-care (01) | DRG 309 ==
LOC: ED 16:34 → PCU 18:12
PROVIDERS: Physician Assistant; Admitting Provider Family Medicine; Emergency Provider Emergency Medicine; PCP Family Medicine; Visit Provider Internal Medicine
DX: I48.91 Unspecified atrial fibrillation (principal); N13.8 Other obstructive and reflux uropathy; D68.59 Other primary thrombophilia; I10 Essential (primary) hypertension; E66.9 Obesity, unspecified; G47.33 Obstructive sleep apnea (adult) (pediatric); D75.1 Secondary polycythemia; Z79.01 Long term (current) use of anticoagulants; Z86.718 Personal history of other venous thrombosis and embolism; Z86.711 Personal history of pulmonary embolism; Z79.899 Other long term (current) drug therapy; Z83.2 Family history of diseases of the blood and blood-forming organs and certain disorders involving the immune mechanism; Z98.890 Other specified postprocedural states; N40.1 Benign prostatic hyperplasia with lower urinary tract symptoms; Z68.38 Body mass index [BMI] 38.0-38.9, adult
CPT/HCPCS: 36415; 71045; 80048; 83735; 83880; 84443; 84484; 85025; 85610; 93005; 93306; 99285; Q9957; A4216